=== PATIENT | male | born 1970 | race Caucasian/White ===

== ENCOUNTER 2018-01-07 14:39 | Emergency (ER) | payer OTHER ==
--- NOTE | 2018-01-07 15:00 | ED Physician Chart ---
ED Chief Complaint/HPI - Patient Information Date Seen:: 01/07/18 Time Seen:: 14:45 Chief Complaint:: Back Pain History of Present Illness:: onset x 3 hours [employer] of MS type, sharp Low Back Pain after an accidental fall resulting in pt landing on his lower back; pt denies LOC, ALOC, AMS, N/V, decreased activity, visual or gait changes; neck pain, weakness, dizziness, paresthesias, vertigo, H/As, C/P, SOB, Abd. Pain, A/N/V/D/C, pelvic/hip pain, flank pain, LE pain; UE pain, or urinary s/s; pt's last tetanus shot: < 5 years ; UTD Allergies:: Allergies Allergy/AdvReac Type Severity Reaction Status Date / Time No Known Allergies Allergy Verified 01/07/18 14:44 Vitals:: Vital Signs - 8 hr 01/07/18 14:44 Temp 97.6 F HR 65 RR 16 BP 143/66 O2 Sat % 99 Historian:: Patient Review:: Nurse's Note Reviewed ED Review of Systems - Review of Systems General/Constitutional: No fever, No chills, No weight loss, No weakness, No diaphoresis, No edema, No loss of appetite Skin: No skin lesions, No rash, No bruising Head: No headache, No light-headedness Eyes: No loss of vision, No pain, No diplopia ENT: No earache, No nasal drainage, No sore throat, No tinnitus Neck: No neck pain, No swelling, No thyromegaly, No stiffness, No mass noted Cardio Vascular: No chest pain, No palpitations, No PND, No orthopnea, No edema Pulmonary: No SOB, No cough, No sputum, No wheezing GI: No nausea, No vomiting, No diarrhea, No pain, No melena, No hematochezia, No constipation, No hematemesis G/U: No dysuria, No frequency, No hematuria, No nacturia Musculoskeletal: No bone or joint pain, Back pain, Muscle pain Endocrine: No polyuria, No polydipsia Psychiatric: No prior psych history, No depression, No anxiety, No suicidal ideation, No homicidal ideation, No auditory hallucination, No visual hallucination Hematopoietic: No bruising, No lymphadenopathy Allergic/Immuno: No urticaria, No angioedema Neurological: No syncope, No focal symptoms, No weakness, No paresthesia, No headache, No seizure, No dizziness, No confusion, No vertigo ED Past Medical History - Past Medical History Obtainable: Yes Past Medical History: No significant medical hx Family History: None Social History: Non Smoker, No Alcohol, No Drug Use, Employed Surgical History: None Psychiatricy History: None Medication: Reviewed ED Physical Exam - Physical Examination General/Constitutional: Awake, Well-developed, well-nourished, Alert, No distress, GCS 15, Non-toxic appearing, Ambulatory Head: Atraumatic Eyes: Lids, conjuctiva normal, PERRL, EOMI Skin: Nl inspection, No rash, No skin lesions, No ecchymosis, Well hydrated, No lymphadenopathy ENMT: External ears, nose nl, TM canals nl, Nasal exam nl, Lips, teeth, gums nl , Oropharynx nl, Tonsils nl Neck: Nontender, Full ROM w/o pain, No JVD, No nuchal rigidity, No bruit, No mass, No stridor Respiratory: Nl effort/Exclusion, Clear to Auscultation, No Wheeze/Rhonchi/Rales Cardio Vascular: RRR, No murmur, gallop, rubs, NL S1 S2, Carotid/Femoral/Distal pulses equal bilaterally GI: No tenderness/rebounding/guarding, No organomegaly, No hernia, Normal BS's, Nondistended, No mass/bruits, No McBurney tenderness, Rectum exam nl : No CVA tenderness Extremities: No tenderness or effusion, Full ROM, normal strength in all extremities, No edema, Normal digits & nails Neuro/Psych: Alert/oriented, DTR's symmetric, Normal sensory exam, Normal motor strength, Judgement/insight normal, Mood normal, Normal gait, No focal deficits Misc: Normal back, No paraspinal tenderness ED Septic Shock - . Is Septic Shock (SBP<90, OR Lactate>4 mmol\L) present?: No - <6hrs of presentation: Vital Signs: Vital Signs - 8 hr 01/07/18 14:44 Temp 97.6 F HR 65 RR 16 BP 143/66 O2 Sat % 99
[2018-01-07] MEDS ORDERED: Morphine Sulfate 4 mg/mL 1mL Syr IM STA (16:17)
[2018-01-07] MEDS ORDERED: Morphine Sulfate 4 mg/mL 1mL Syr ONE ×2 (16:21→17:25)
[2018-01-07] MEDS ORDERED: Sodium Chloride 0.9% 1,000 ML IV ONE (17:04)
[2018-01-07] MEDS ORDERED: Morphine Sulfate 4 mg/mL 1mL Syr IVP ONE (17:04)
[2018-01-07 17:25] LABS: % BASOPHILS 0.4 % (0.0-2.0); % EOSINOPHILS 0.7 % (0.0-5.0); % LYMPHOCYTES 8.8 % (20.0-50.0); % MONOCYTES 3.8 % (2.0-10.0); % NEUTROPHILS 86.3 % (40.0-80.0); BASOPHILE ABSOLUTE 0.1 Th/cumm (0-0.2); EOSINOPHILE ABSOLUTE 0.1 Th/cmm (0.1-0.4); HEMATOCRIT 48.9 % (41.0-60); HEMOGLOBIN 16.2 gm/dL (12-16); LYMPHOCYTE ABSOLUTE 1.1 Th/cmm (1.5-3.0); MEAN CELL VOLUME 86.2 fl (80-99); MEAN CORPUSCULAR HEMOGLOBIN 28.5 pg (26.0-30.0); MEAN PLATELET VOLUME 7.5 fl; MONOCYTE ABSOLUTE 0.5 Th/cmm (0.3-1.0); NEUTROPHILE ABSOLUTE 10.7 Th/cmm (1.8-8.0); PLATELET COUNT 263 Th/cmm (150-400); RED BLOOD COUNT 5.68 Mil/cmm (4.30-5.70); RED CELL DISTRIBUTION WIDTH 14.4 % (11.5-20.0)
[2018-01-07 17:28] LABS: WHITE BLOOD COUNT 12.5 Th/cmm (4.8-10.8)
[2018-01-07 17:41] LABS: ANION GAP 10.4 (7.0-16.0); BUN - UREA NITROGEN 12 mg/dL (7-25); CARBON DIOXIDE 25.9 mEq/L (21.0-31.0); CHLORIDE 104 mEq/L (98-107); CREATININE - SERUM 1.2 mg/dL (0.7-1.3); GFR AFRICAN-AMERICAN > 60.0 ml/min (>90); GFR NON AFRICAN-AMERICAN > 60.0 ml/min; GLUCOSE 102 mg/dL (70-105); POTASSIUM SERUM 4.3 mEq/L (3.5-5.1); SODIUM SERUM 136 mEq/L (136-145)
[2018-01-07] MEDS ORDERED: HYDROmorphone 1 mg/mL 1mL Syr IM STA (22:28)
[2018-01-07] MEDS ORDERED: HYDROmorphone 1 mg/mL 1mL Syr ONE (22:28)
--- NOTE | 2018-01-08 07:52 | Diagnostic Imaging Report ---
Pelvis (3 views) HISTORY: Pain, trauma No acute bony abnormalities. No fractures. Hip joints appear normal. Sacroiliac joints appear normal. IMPRESSION: 1. No acute bony abnormalities
--- NOTE | 2018-01-08 07:59 | Diagnostic Imaging Report ---
CT lumbar spine without IV contrast HISTORY: Fall, trauma COMPARISON: None Technique: Axial images were obtained from the lower thoracic spine to the upper sacrum without IV contrast. Reconstructions were made. total DLP: 1183, CTDI39.3 Findings: There appears to be partial lumbarization of S1. There are multiple displaced transverse process fractures extending from L1 through L5. No subluxation. Multilevel moderate degenerative changes are noted with marginal ossific spurring. Small posterior disc bulging is seen the largest at L5/S1 measuring 3 mm with mild spinal canal narrowing at this level. Multilevel [id number] facet degenerative changes are also noted. Degenerative changes of SI joints are noted. There is suggestion of possible mild bilateral hydronephrosis. Atherosclerosis is noted. IMPRESSION: Right-sided L1-L5 displaced transverse process fractures. Multilevel degenerative changes. Possible mild hydronephrosis. If necessary follow up exams such as ultrasound may be obtained Atherosclerotic vascular disease.
--- NOTE | 2018-01-08 08:00 | Diagnostic Imaging Report ---
Head CT without intravenous contrast Indication: Trauma Comparison: None Technique: Axial images were obtained from the vertex to the skull base without IV contrast. Coronal reconstructions were made. Total DLP: 791, CTDI45 FINDINGS: Images of the brain obtained without contrast demonstrate no acute hemorrhage. No mass lesions identified. The ventricles and basal cisterns are patent. The walton-white matter differentiation is preserved. There is no mass effect or midline shift. There is minimal atherosclerotic vascular disease. No skull fractures identified. No soft tissue swelling. The paranasal sinuses are clear. IMPRESSION: No acute intracranial abnormality.
--- NOTE | 2018-01-08 08:03 | Diagnostic Imaging Report ---
CT cervical spine without IV contrast HISTORY: Trauma COMPARISON: None Technique: Axial images were obtained from the skull base to the upper thoracic spine without IV contrast. Multiplanar reconstructions were made. Total DLP: 661, CTDI 57 FINDINGS: Images of the spine cervical spine obtained without contrast demonstrate no evidence of a fracture or subluxation. The disc spaces are preserved. Mild degenerative changes are seen with there is a marginal osteophytic spurring. No prevertebral soft tissue swelling. No focal soft tissue abnormalities. The lung apices are clear. IMPRESSION: No evidence of a fracture or subluxation. Mild degenerative changes.
== END 2018-01-07 22:51 | disposition short-term general hospital (02) ==
LOC: ER 14:39
DX: S32.019A Unspecified fracture of first lumbar vertebra, initial encounter for closed fracture (principal); S32.029A Unspecified fracture of second lumbar vertebra, initial encounter for closed fracture; S32.039A Unspecified fracture of third lumbar vertebra, initial encounter for closed fracture; S32.049A Unspecified fracture of fourth lumbar vertebra, initial encounter for closed fracture; S32.059A Unspecified fracture of fifth lumbar vertebra, initial encounter for closed fracture; W13.2XXA Fall from, out of or through roof, initial encounter; Y93.89 Activity, other specified; Y92.89 Other specified places as the place of occurrence of the external cause; Y99.8 Other external cause status
CPT/HCPCS: 99285; 96372 ×2; 96374; 96375; 72170; 70450; 72125; 72131; 36415; 85025; 80048; J1885; J2405; J1170; J7030